=== PATIENT | female | born 1975 | race Caucasian/White ===

== ENCOUNTER 2018-07-13 17:00 | Emergency (ER) | payer MEDICAID ==
[2018-07-13] MEDS: IBUPROFEN 800 MG TAB PO (19:37)
== END 2018-07-13 20:03 | disposition home or self-care (01) ==
LOC: E/R 17:00
DX: R07.89 Other chest pain (principal); I10 Essential (primary) hypertension; I25.2 Old myocardial infarction
CPT/HCPCS: 71045; 81025; 93005; 99284-25

== ENCOUNTER 2019-07-24 17:22 | Emergency (ER) | payer SELFPAY, MEDICAID | END 2019-07-24 18:12 | disposition home or self-care (01) | LOC: E/R 17:22 | DX: S80.862A Insect bite (nonvenomous), left lower leg, initial encounter (principal); S80.861A Insect bite (nonvenomous), right lower leg, initial encounter; I10 Essential (primary) hypertension; I25.2 Old myocardial infarction; W57.XXXA Bitten or stung by nonvenomous insect and other nonvenomous arthropods, initial encounter; Y92.9 Unspecified place or not applicable | CPT/HCPCS: 99283 ==